=== PATIENT | male | born 1935 | race Caucasian/White ===

== ENCOUNTER 2017-12-05 01:43 | Emergency (ER) | payer MEDICARE, OTHER ==
[~2017-12-05] VITALS: Ht 170.2 cm; Wt 87.0 kg
[2017-12-05] MEDS ORDERED: HYDR12.57 PO (01:57)
[2017-12-05 01:58] VITALS: BP_SYST 175; BP_SYST 191; BP_DIAS 78; BP_DIAS 86; PULSE 85; RESP 18; O2SAT 97
[2017-12-05] MEDS ORDERED: SODIUM CHLORIDE 0.9% FLUSH 10 ML FLUSH IV FLUSH PRN (02:00)
[2017-12-05] MEDS ORDERED: FAMOTIDINE 20 MG/2 ML VIAL IV PUSH ONE (02:00)
--- NOTE | 2017-12-05 02:00 | PD ---
HPI Chief Complaint: Allergic/Adverse Reaction Time Seen by Provider: 01:52 Travel History International Travel<30 days: No Contact w/Intl Traveler<30days: No Traveled to known affect area: No History of Present Illness HPI 82-year-old male complains of tongue swelling and trouble breathing. Patient states the symptoms started about 9 PM. Patient states that he is taking HCTZ for blood pressure. Patient started taking HCTZ about 5 weeks ago. Patient denies any new medication. Patient states that he started having tongue swelling trouble breathing yesterday evening. Patient denies any chest pain. Patient states that he has some mild shortness of breath. EMS was called. Patient was given Benadryl 50 mg IV and Solu-Medrol 125 mg IV prior to arrival. Patient states that he feeling better now. Patient states that the tongue swellings better. PFSH Social History Tobacco Use: No Allergies-Medications (Allergen,Severity, Reaction): Coded Allergies: shellfish derived (Verified Allergy, Unknown, 12/05/17) Reported Meds & Prescriptions Reported Meds & Active Scripts Active Zantac (Ranitidine HCl) 300 Mg Tab 300 Mg PO DAILY Zyrtec (Cetirizine HCl) 10 Mg Capsule 1 Tab PO DAILY Prednisone 20 Mg Tab 20 Mg PO BID Reported Aspirin 81 Mg Chew 81 Mg CHEW DAILY Hydrochlorothiazide 12.5 Mg Cap 12.5 Mg PO DAILY Review of Systems General / Constitutional: No: Fever Eyes: No: Visual changes HENT: No: Headaches Cardiovascular: No: Chest Pain or Discomfort Respiratory: No: Shortness of Breath Gastrointestinal: No: Abdominal Pain Genitourinary: No: Dysuria Musculoskeletal: No: Pain Skin: No Rash Neurologic: No: Weakness Psychiatric: No: Depression Endocrine: No: Polydipsia Hematologic/Lymphatic: No: Easy Bruising Physical Exam Narrative GENERAL: Well-nourished, well-developed patient. SKIN: Focused skin assessment warm/dry. HEAD: Normocephalic. EYES: No scleral icterus. No injection or drainage. Patient has mild to moderate angioedema with tongue swelling noted. No edema of the throat. NECK: Supple, trachea midline. No JVD or lymphadenopathy. CARDIOVASCULAR: Regular rate and rhythm without murmurs, gallops, or rubs. RESPIRATORY: Breath sounds equal bilaterally. No accessory muscle use. No stridor or wheezes noted. GASTROINTESTINAL: Abdomen soft, non-tender, nondistended. MUSCULOSKELETAL: No cyanosis, or edema. BACK: Nontender without obvious deformity. No CVA tenderness. Neurologic exam normal. Data Data Last Documented VS Vital Signs Date Time Temp Pulse Resp B/P (MAP) Pulse Ox O2 Delivery O2 Flow Rate FiO2 12/05/17 05:06 12/05/17 04:00 84 16 98 Room Air Orders Orders Ecg Monitoring (12/05/17 01:54) Iv Access Insert/Monitor (12/05/17 01:54) Oximetry (12/05/17 01:54) Famotidine Inj (Pepcid Inj) (12/05/17 02:00) Sodium Chloride 0.9% Flush (Ns Flush) (12/05/17 02:00) Ed Discharge Order (12/05/17 04:39) [facility] Medical Decision Making Medical Screen Exam Complete: Yes Emergency Medical Condition: Yes Differential Diagnosis Differential diagnosis including angioedema. Narrative Course 82-year-old male with angioedema. Patient was given Solu-Medrol and Benadryl IV by EMS. Patient is feeling better. Pepcid 20 mg IV given. 4:39 AM. Patient is feeling much better. Tongue swelling much improved. Patient will be discharged. Diagnosis Primary Impression: Angioedema Qualified Codes: T78.3XXA - Angioneurotic edema, initial encounter Patient Instructions: General Instructions Additional Instructions: Stop HCTZ. Follow-up with personal physician. Return if worse. Prednisone and Zyrtec and Zantac as directed. Return immediately if shortness of breath. Med/Other Pt SpecificInfo: Med Stopped Scripts Ranitidine (Zantac) 300 Mg Tab 300 MG PO DAILY, #10 TAB 0 Refills Prov: Bipin Paez MD 12/05/17 Cetirizine HCl (Zyrtec) 10 Mg Capsule 1 TAB PO DAILY, #10 Prov: Bipin Paez MD 12/05/17 Prednisone (Prednisone) 20 Mg Tab 20 MG PO BID, #10 TAB 0 Refills Prov: Bipin Paez MD 12/05/17 Disposition: 01 DISCHARGE HOME Condition: Stable Bipin Paez MD Dec 05, 2017 02:00
[2017-12-05 02:02] VITALS: O2SAT 97
[2017-12-05] MEDS ORDERED: ASPI-516 CHEW (02:02)
[2017-12-05 03:00] VITALS: BP 164/72; PULSE 78; RESP 18; O2SAT 95
[2017-12-05 04:00] VITALS: BP 154/73; PULSE 84; RESP 16; O2SAT 98
[2017-12-05] MEDS ORDERED: PRED20 PO (04:41)
[2017-12-05] MEDS ORDERED: CETI10CA3 PO (04:41)
[2017-12-05] MEDS ORDERED: ZANT300T PO (04:41)
== END 2017-12-05 05:07 | disposition home or self-care (01) ==
LOC: NEPE 01:43
DX: T78.3XXA Angioneurotic edema, initial encounter (principal); Z91.013 Allergy to seafood; Z79.82 Long term (current) use of aspirin
CPT/HCPCS: 96374